=== PATIENT | female | born 1940 | race Caucasian/White ===

== ENCOUNTER 2024-04-09 16:38 | Emergency (ER) | payer OTHER, SELFPAY ==
--- NOTE | ~2024-04-09 | XR_ITS ---
EXAMINATION: XR ankle RT min 3V DATE: 04/09/2024 17:14 INDICATION: Lateral right ankle pain and swelling. TECHNIQUE: 4 views of right ankle were obtained. COMPARISON: None. FINDINGS: There is a nondisplaced transverse fracture of distal fibula with medial aspect of the frac ture line 10 mm distal to the level of the tibial plafond. There are small calcifications distal to m edial malleolus, probably chronic. There is mild osteoarthritis of talonavicular joint. There is an e nthesophyte at the posterior aspect of calcaneal tuberosity. IMPRESSION: 1. Nondisplaced transverse fracture of distal fibula. Reviewed, dictated and finalized at location A.
--- NOTE | 2024-04-09 16:41 | ED.LOWEXIN ---
HPI - Extremity Injury (Lower) General Chief Complaint: Extremity Injury, Lower Stated Complaint: Right Ankle Injury Time Seen by Provider: 04/09/24 17:20 Source: patient and RN notes reviewed Mode of arrival: ambulatory Limitations: no limitations History of Present Illness HPI Narrative: 83-year-old female presents with concern for right ankle pain. Reports prior to arrival she stepped in a hole and injured her ankle. She reports ankle swelling, painful walking. She reports she has already unstable on her left lower extremity at baseline. MD complaint: ankle injury Related Data Home Medications Medication Instructions Recorded Confirmed azelastine 137 mcg (0.1 %) nasal 1 spray intranasal BID 04/09/24 04/09/24 spray colestipol 1 gram tablet 1 g PO BID 04/09/24 04/09/24 lisinopril 20 1 tablet PO DAILY 04/09/24 04/09/24 mg-hydrochlorothiazide 12.5 mg tablet pravastatin 20 mg tablet 20 mg PO DAILY 04/09/24 04/09/24 Allergies Allergy/AdvReac Type Severity Reaction Status Date / Time No Known Allergies Allergy Verified 04/09/24 17:06 Review of Systems Review of Systems: CONSTITUTIONAL: Denies malaise, chills, sweats, or fever. SKIN: Denies rash or itching, open skin, laceration, abrasion, redness, warmth MUSCULOSKELETAL: Reports left ankle pain and swelling NEUROLOGIC: Denies numbness, weakness All systems reviewed & are unremarkable except as noted in HPI and below PMFSH Comments At time of signature, agree with nursing past medical, surgical, social and family history. There is no relevant family history pertinent to the presenting complaint Exam Narrative: GENERAL: Well-appearing, well-nourished, and in no acute distress. HEAD: Normocephalic, atraumatic. EYES: PERRLA, conjunctivae clear NECK: Supple. CHEST: Speaks in full sentences. No respiratory distress. HEART: Regular rate and rhythm. Normal and equal peripheral pulses. EXTREMITIES: Right ankle has grossly normal strength and sensation, limited range of motion. Mild lateral edema without erythema or ecchymosis. Normal sensation with sensitivity to light touch and pain. Lateral ankle tenderness. No open wounds, no skin tenting, no devitalized tissue or atrophy, no trophic changes, no obvious deformity, alignment normal, nearby joints and structures intact. Distal pulses palpable and equal bilaterally, skin warm, dry, pink. Capillary refill less than 3 seconds. SKIN: Warm, dry, no rash. NEURO: Alert and oriented x3. PSYCH: Normal mood and affect Course Course Emergency Course: Patient is aware of diagnosis, understands and agrees to treatment plan. Patient is unable to use crutches due to her age and decreased strength in her left lower extremity at baseline. I feel OB and safe to place the patient on crutches and put her at risk for a fall. Patient has a walker at home, she will be wheelchair to the car and will use her walker when she gets home. She will follow-up with orthopedics tomorrow. Anticipatory guidance given. Patient agrees to follow-up as directed and is aware of reasons to seek care at the emergency department. Portions of this record may have been created with voice recognition software Level of Care: Express Care Visit Vital Signs Vital signs: Reviewed. MDM - Extremity Injury (Lower) MDM Narrative Medical decision making narrative: Patients injury and pain is consistent with musculoskeletal etiology. No signs of neurological or vascular compromise on exam. Compartments and tissues are soft without signs of compartment syndrome. Pain is felt appropriate for further evaluation on an outpatient basis. Imaging Data My impression: Images reviewed, interpreted by radiologist, agree, see report. Radiologist's impression: EXAMINATION: XR ankle RT min 3V DATE: 04/09/2024 17:14 INDICATION: Lateral right ankle pain and swelling. TECHNIQUE: 4 views of right ankle were obtained. COMPARISON: None. FINDINGS: T
[2024-04-09 16:48] VITALS: BP 138/38; PULSE 66; RESP 14; TEMP 36.9; O2SAT 100
[2024-04-09 16:57] VITALS: BP 155/57
== END 2024-04-09 17:52 | disposition home or self-care (01) ==
PROVIDERS: Emergency Provider Nurse Practitioner; PCP Hospitalist
DX: S82.831A Other fracture of upper and lower end of right fibula, initial encounter for closed fracture (principal); W17.2XXA Fall into hole, initial encounter
CPT/HCPCS: 73610; 99203; G0463